=== PATIENT | male | born 1955 | race Caucasian/White ===

== ENCOUNTER → 2016-07-19 | Day surgery (SDC) | payer BC, OTHER ==
[2016-07-12 07:57] VITALS: Ht 182.9 cm; Wt 111.4 kg
[~2016-07-19] VITALS: Ht 182.9 cm; Wt 111.4 kg
[~2016-07-19] MED LIST: ALBU1AER9 INH; BNC/40 PO; CHOL1000 PO; EPP3/2 IM; MIDAZOLAM HCL 1 MG/ML 2ML VIAL ONE; MOME200A INH; MONT1TAB3 PO; OLME40TA33 PO; PANT40TA PO; PROPOFOL IV EMULSION 10 MG/ML 20 ML VIAL IV ONE; PRT/40 PO; RIVA1TAB4 PO; SIMV-151 PO; SNG10 PO; TPRSR/25 PO; VNTHFA/IN INH; XRL20 PO
[2016-07-19 14:12] VITALS: TEMP 36.9
--- NOTE | 2016-07-19 15:05 | Endo History and Physical ---
History & Physical Date of Service: Jul 19, 2016. Chief Complaint: Reflux Referring Physician: Miles Ye History of Present Illness 61 yo CM who presents for EGD secondary to GERD. Past Surgical History Hx Cardiac Surgery: Yes (CARDIAC ABLATION X3) Hx Internal Defibrillator: No Hx Pacemaker: No Hx Abdominal Surgery: Yes (APPY) Hx of Implantable Prosthesis: No Hx Post-Op Nausea and Vomiting: No Hx Cancer Surgery: Yes (MULTIPLE SKIN CANCER REMOVALS (MOHS)) Hx Thoracic Surgery: No Hx Orthopedic: Yes (RT HAND TENDON REPAIR) Hx Urinary Tract Surgery: No (TONSILLECTOMY) Family History None Social History Smoking Status: Former Smoker Hx Substance Use: No Hx Alcohol Use: No Allergies Coded Allergies: Lidocaine (Verified Allergy, Mild, LOCAL SWELLING AT SITE USED, 07/12/16) USED FOR LAST BRAIN SURGERY - DID OKAY WITH USE OF LIDOCAINE WITH MOHS PROCEDURES PER PATIENT, "JUST KEEP AN EYE ON ME WHEN USED." Current Medications Reported Home Medications Medications Dose Route/Sig Max Daily Dose Days Date Category Dose Instructions Singulair (Montelukast Sodium) 10 Mg Tab 10 Mg PO QAM 07/12/16 Reported Dulera 200/5 Mcg (Mometasone Furoate-Formoterol) 1 Aer Aer 2 Puffs INH BID 07/12/16 Reported Vitamin D3 (Cholecalciferol) 1,000 Unit Tab 1 Tab PO QAM 07/12/16 Reported Simvastatin 20 Mg Tab 20 Mg PO HS 09/22/14 Reported Metoprolol Succinate ER (Metoprolol Succinate) 25 Mg Tabcr 25 Mg PO QAM 09/22/14 Reported Xarelto (Rivaroxaban) 20 Mg Tab 20 Mg PO HS 02/04/13 Reported Epipen (Epinephrine) 0.3 Mg/0.3 Ml Inj 0.3 Mg IM UD PRN 02/04/13 Reported ONE INJECTION IF NEEDED FOR SEVERE ALLERGIC REACTIONS, REPEAT IN 20 MINUTES IF REACTION CONTINUES. Proair Hfa (Albuterol Sulfate) 108 Mcg/ Aer 2 Puffs INH Q4H PRN 02/04/13 Reported Benicar (Olmesartan Medoxomil) 40 Mg Tab 40 Mg PO HS 02/04/13 Reported Protonix (Pantoprazole Sodium) 40 Mg Tab 40 Mg PO BID 02/04/13 Reported Vital Signs Weight (Kilograms): 111.36 Height (Feet): 6 Height (Inches): 0 Date Time Temp Pulse Resp B/P Pulse Ox O2 Delivery O2 Flow Rate FiO2 07/19/16 14:12 36.9 76 16 141/86 95 Room Air Physical Exam General Appearance: WD/WN, no apparent distress Respiratory/Chest: Auscultation: breath sounds normal Cardiovascular: Heart Auscultation: RRR Abdomen: Bowel Sounds: normal Inspection & Palpation: soft, non-distended, no tenderness, guarding & rebound Assessment and Plan Assessment: 61 yo CM who presents for EGD secondary to GERD. Plan: Proceed with EGD.
--- NOTE | 2016-07-19 15:23 | Discharge Instructions ---
Endoscopy Patient Instructions Date / Procedure(s) Performed Jul 19, 2016. EGD Allergy Information Coded Allergies: Lidocaine (Verified Allergy, Mild, LOCAL SWELLING AT SITE USED, 07/12/16) USED FOR LAST BRAIN SURGERY - DID OKAY WITH USE OF LIDOCAINE WITH MOHS PROCEDURES PER PATIENT, "JUST KEEP AN EYE ON ME WHEN USED." Discharge Date / Findings Jul 19, 2016. Gastritis s/p biopsies Medication Instructions Stopped Medication(s): Xarelto OK to resume all medications today as prescribed. Reported Home Medications Medications Dose Route/Sig Max Daily Dose Days Date Category Dose Instructions Singulair (Montelukast Sodium) 10 Mg Tab 10 Mg PO QAM 07/12/16 Reported Dulera 200/5 Mcg (Mometasone Furoate-Formoterol) 1 Aer Aer 2 Puffs INH BID 07/12/16 Reported Vitamin D3 (Cholecalciferol) 1,000 Unit Tab 1 Tab PO QAM 07/12/16 Reported Simvastatin 20 Mg Tab 20 Mg PO HS 09/22/14 Reported Metoprolol Succinate ER (Metoprolol Succinate) 25 Mg Tabcr 25 Mg PO QAM 09/22/14 Reported Xarelto (Rivaroxaban) 20 Mg Tab 20 Mg PO HS 02/04/13 Reported Epipen (Epinephrine) 0.3 Mg/0.3 Ml Inj 0.3 Mg IM UD PRN 02/04/13 Reported ONE INJECTION IF NEEDED FOR SEVERE ALLERGIC REACTIONS, REPEAT IN 20 MINUTES IF REACTION CONTINUES. Proair Hfa (Albuterol Sulfate) 108 Mcg/ Aer 2 Puffs INH Q4H PRN 02/04/13 Reported Benicar (Olmesartan Medoxomil) 40 Mg Tab 40 Mg PO HS 02/04/13 Reported Protonix (Pantoprazole Sodium) 40 Mg Tab 40 Mg PO BID 02/04/13 Reported Provider Instructions Activity Restrictions - No exercising or heavy lifting for 24 hours. - Do not drink alcohol the day of the procedure. - Do not drive a car or operate machinery until the day after the procedure. - Do not make any important decisions or sign important papers in 24 hours after the procedure. Following Day: - Return to full activity which may include returning to work/school. Diet Start your diet with liquids and light foods (jello, soup, juice, toast). Then eat your usual diet if not nauseated. Treatment For Common After Affects For mild abdominal pain, bloating, or excessive gas: - Rest - Eat lightly - Lie on right side Follow-Up Information Follow-up with Miles Ye as scheduled Anesthesia Information What You Should Know You have had a procedure that required some medicine to reduce anxiety and discomfort. This treatment is called moderate sedation. After receiving the treatment, you may be sleepy, but you will be able to breathe on your own. The effects of the treatment may last for several hours. Follow these instructions along with Activity/Diet recommendations noted above: * Do NOT do anything where dizziness or clumsiness would be dangerous. * Rest quietly at home today, then you can be up and about tomorrow. * Have a responsible person stay with you the rest of today. * You may have had an I.V. today. If so, you may take the dressing off later today. Recommendations Call your doctor if: * Trouble breathing * Continuous vomiting for more than 24 hours * Temperature above 101 degrees * Severe abdominal pain or bloating * Pain not relieved by pain medicine ordered * There is increased drainage or redness from any incision * A large amount of rectal bleeding greater than 2-3 tablespoons. (If you had a polyp/s removed or have hemorrhoids, a small amount of blood - from the rectum is to be expected.) * You have any unanswered questions or concerns. IN THE EVENT OF A SERIOUS EMERGENCY, GO TO THE NEAREST EMERGENCY ROOM Your discharge instructions were prepared by provider Jose Luis Harper. Patient Instructions Signature Page Mariano Brown Patient (or Guardian) Signature/Date: I have read and understand the instructions given to me by my caregivers. Caregiver/RN/Doctor Signature/Date: The above-named patient and/or guardian has received patient instructions on this date. + Original Patient Signature Page (only) stays with chart. Please make copy for patient.
--- NOTE | 2016-07-19 15:32 | GI REPORT ---
Procedure Date: 07/19/2016 2:56 PM Procedure: Upper GI endoscopy Indications: Dysphagia Medicines: Monitored Anesthesia Care Complications: No immediate complications. Estimated Blood Loss: Estimated blood loss: none. Procedure: Pre-Anesthesia Assessment: - Prior to the procedure, a History and Physical was performed, and patient medications and allergies were reviewed. The patient's tolerance of previous anesthesia was also reviewed. The risks and benefits of the procedure and the sedation options and risks were discussed with the patient. All questions were answered, and informed consent was obtained. Prior Anticoagulants: The patient has taken Xarelto (rivaroxaban), last dose was 8 days prior to procedure. ASA Grade Assessment: III - A patient with severe systemic disease. After reviewing the risks and benefits, the patient was deemed in satisfactory condition to undergo the procedure. After obtaining informed consent, the endoscope was passed under direct vision. Throughout the procedure, the patient's blood pressure, pulse, and oxygen saturations were monitored continuously. The scope was introduced through the mouth, and advanced to the second part of duodenum. The upper GI endoscopy was accomplished without difficulty. The patient tolerated the procedure well. Findings: The esophagus was normal. Localized mild inflammation characterized by erythema was found in the gastric antrum. Biopsies were taken with a cold forceps for histology. The examined duodenum was normal. Impression: - Normal esophagus. - Gastritis. Biopsied. - Normal examined duodenum. Recommendation: - Resume previous diet. - Continue present medications. - Await pathology results. - Return to GI office as previously scheduled. Jose Luis Harper DO 07/19/2016 3:31:50 PM This report has been signed electronically. Note Initiated On: 07/19/2016 2:56 PM
[2016-07-19 15:40] VITALS: BP 123/72; PULSE 69; O2SAT 96
--- NOTE | 2016-07-19 15:56 | Anesthesiology Progress Note ---
Anesthesia Post Op Note Date & Time Jul 19, 2016 at 15:56 Vital Signs Pain Intensity: 0 Vital Signs Past 12 Hours Date Time Temp Pulse Resp B/P Pulse Ox O2 Delivery O2 Flow Rate FiO2 07/19/16 15:40 69 18 123/72 96 Room Air 07/19/16 15:30 73 18 126/72 95 Room Air 07/19/16 15:22 78 18 125/73 93 Room Air 07/19/16 14:12 36.9 76 16 141/86 95 Room Air Notes Mental Status: alert / awake / arousable, participated in evaluation Pt Amnestic to Procedure: Yes Nausea / Vomiting: adequately controlled Pain: adequately controlled Airway Patency, RR, SpO2: stable & adequate BP & HR: stable & adequate Hydration State: stable & adequate Anesthetic Complications: no major complications apparent
== END | disposition home or self-care (01) ==
LOC: C.GI 13:31
PROVIDERS: ATTEND Internal Medicine
DX: R13.10 Dysphagia, unspecified (principal); K29.70 Gastritis, unspecified, without bleeding; K21.9 Gastro-esophageal reflux disease without esophagitis; Z98.890 Other specified postprocedural states; Z87.891 Personal history of nicotine dependence; Z88.8 Allergy status to other drugs, medicaments and biological substances

== ENCOUNTER → 2016-08-09 | Outpatient (CLI) | payer OTHER ==
[~2016-08-09] MED LIST changes: -MIDAZOLAM HCL 1 MG/ML 2ML VIAL ONE; -PROPOFOL IV EMULSION 10 MG/ML 20 ML VIAL IV ONE
--- NOTE | 2016-08-09 08:44 | DIAGNOSTIC IMAGING REPORT ---
ABDOMINAL ULTRASOUND, RIGHT UPPER QUADRANT HISTORY: Right upper quadrant abdominal pain.. COMPARISON: Right upper quadrant ultrasound February 04, [address] of the abdomen and pelvis February 15, 2016 FINDINGS: Liver morphology is normal. No hepatic lesions are identified. No gallstones are identified. There is no biliary ductal dilatation. The pancreas is obscured by overlying bowel gas. There is no right hydronephrosis. IMPRESSION: 1. No gallstones or biliary ductal dilatation. 2. Obscured pancreas due to overlying bowel gas. Electronically signed by: Parth Leal M.D. 08/09/2016 8:43 AM Dictated Date/Time: 08/09/2016 8:41 AM
== END | disposition home or self-care (01) ==
LOC: C.ULTR 07:25
PROVIDERS: ATTEND Internal Medicine
DX: R10.11 Right upper quadrant pain (principal)

== ENCOUNTER → 2016-08-16 | Outpatient (CLI) | payer OTHER ==
[~2016-08-16] MED LIST changes: +SINCALIDE INJ 2.3 MCG in SODIUM CHLORIDE 0.9% 100ML 100 ML IV SCH
--- NOTE | 2016-08-16 10:26 | DIAGNOSTIC IMAGING REPORT ---
NUCLEAR MEDICINE HEPATOBILIARY SCAN WITH GALLBLADDER EJECTION FRACTION CLINICAL HISTORY: Right upper quadrant abdominal pain. COMPARISON: Right upper quadrant ultrasound August 09, 2016. TECHNIQUE: 5.8 mCi of technetium 99m Choletec IV was injected at 7:52 AM on August 16, 2016. Immediately following injection, imaging of the abdomen was carried out for 60 minutes in the anterior projection. At this time, 2.3 mcg of Sincalide was injected IV as per protocol. Imaging was performed for an additional 45 minutes to estimate a gallbladder ejection fraction. FINDINGS: Hepatic uptake of radiotracer is prompt and homogeneous. Activity is first identified within the gallbladder and common bile duct at 10 minutes. Small bowel activity is first noted at 15 minutes. Following injection of sincalide, there was normal gallbladder emptying with an ejection fraction of 99%. Normal is greater than 30-35%. IMPRESSION: 1. Normal hepatobiliary scan. 2. Normal gallbladder ejection fraction of 99%. Electronically signed by: Parth Leal M.D. 08/16/2016 10:25 AM Dictated Date/Time: 08/16/2016 10:24 AM
== END | disposition home or self-care (01) ==
LOC: C.NUCL 07:06
PROVIDERS: ATTEND Internal Medicine
DX: R10.11 Right upper quadrant pain (principal)

== ENCOUNTER 2016-12-18 12:14 | Emergency (ER) | payer OTHER ==
[~2016-12-18] VITALS: Ht 182.9 cm; Wt 115.0 kg
[~2016-12-18 12:14] MED LIST changes: -CHOL1000 PO; -EPP3/2 IM; -MOME200A INH; -OLME40TA33 PO; -PRT/40 PO; -SIMV-151 PO; -SINCALIDE INJ 2.3 MCG in SODIUM CHLORIDE 0.9% 100ML 100 ML IV SCH; -SNG10 PO; -TPRSR/25 PO; -VNTHFA/IN INH; -XRL20 PO
[2016-12-18 12:17] VITALS: TEMP 36.7; Ht 182.9 cm; Wt 115.0 kg
--- NOTE | 2016-12-18 13:30 | EMERGENCY ROOM VISIT NOTE ---
History Report prepared by Juventino: Shannon Montes Under the Supervision of: Dr. Abhishek Potter M.D. First contact with patient: 13:13 Chief Complaint: ALLERGIC REACTION Stated Complaint: BEE STING Nursing Triage Summary: Patient stung by bee to right lateral ankle. Did take epi pen RESISTANCE BRAZER, epi pen not left in leg after injection,w as immediately withdrawn, unknown amount of medication given. patient presents with some chest tightening. Negative oral pharynx swelling, negative chest pain, negative hives. Patient appears calm and comfortable. History of Present Illness The patient is a 61 year old male who presents to the Emergency Room with complaints of a resolved allergic reaction that started 2 hours ago, around 1130. The patient states that he was stung on the medial aspect of his left ankle by a "ground hornet." He states that he has been stung by them before and had allergic reactions. 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 The patient used his EpiPen around 1200. He is currently experiencing some chest tightness which he used his inhaler for. He denies oropharynx swelling, shortness of breath, pruritus, and rash. The patient did not take any Benadryl. The patient adds that he was also stung by a bee yesterday, but he did not have a severe reaction. Source of History: patient Onset: 2 hours ago, around 1130 Position: other (global) Quality: other (allergic reaction) Timing: resolved Associated Symptoms: No SOB, No rash Note: chest tightness, no oropharynx swelling, no pruritus Review of Systems All systems have been listed, reviewed, and are negative other than those previously mentioned. Please see Additional Medical History Sheet. Past Medical & Surgical Medical Problems: (1) Appendectomy (2) Asthma (3) Benign hypertension (4) Bronchitis (5) Heart disease (6) History of tonsillectomy (7) Paroxysmal atrial fibrillation (8) Pneumonia Surgical Problems: (1) S/P deep brain stimulator placement (2) S/P tendon repair Family History Hypertension Social History Smoking Status: Former Smoker Alcohol Use: none Drug Use: none Marital Status: Housing Status: lives with family Occupation Status: employed Current/Historical Medications Scheduled Cholecalciferol (Vitamin D3), 1 TAB PO QAM Metoprolol Succinate (Metoprolol Succinate ER), 25 MG PO QAM Mometasone Furoate-Formoterol (Dulera 200/5 Mcg), 2 PUFFS INH BID Montelukast Sodium (Singulair), 10 MG PO QAM Olmesartan Medoxomil (Benicar), 40 MG PO HS Pantoprazole Sodium (Protonix), 40 MG PO BID Rivaroxaban (Xarelto), 20 MG PO HS Simvastatin (Simvastatin), 20 MG PO HS Scheduled PRN Albuterol Hfa (Ventolin Hfa), 2 PUFFS INH Q4 PRN for SOB/Wheezing Epinephrine (Epipen), 0.3 MG IM UD PRN Allergies Coded Allergies: Lidocaine (Verified Allergy, Mild, LOCAL SWELLING AT SITE USED, 07/12/16) USED FOR LAST BRAIN SURGERY - DID OKAY WITH USE OF LIDOCAINE WITH MOHS PROCEDURES PER PATIENT, "JUST KEEP AN EYE ON ME WHEN USED." Bee Venom (Verified Allergy, Unknown, ANAPHYLAXIS, 12/18/16) POLLEN (Verified Allergy, Unknown, UNK, 12/18/16) Physical Exam Vital Signs Date Time Temp Pulse Resp B/P (MAP) Pulse Ox O2 Delivery O2 Flow Rate FiO2 12/18/16 14:43 70 16 124/84 96 12/18/16 13:44 73 13 94 12/18/16 13:33 120/83 12/18/16 13:14 83 16 95 12/18/16 12:53 Room Air 12/18/16 12:44 77 8 93 12/18/16 12:40 95 Room Air 12/18/16 12:32 81 12/18/16 12:17 36.7 85 20 151/93 94 Room Air Physical Exam GENERAL: Patient awake, alert, oriented x 3. Patient follows commands. Patient does not appear toxic. Patient is adequately hydrated and well- nourished. SKIN: No erythema, pallor, cyanosis or rash HEENT: Normal head, pupils equal, reactive to light and accommodation. Oral cavity and posterior pharynx appear normal. No tongue or uvular swelling. Neck: Without adenopathy, no neck vein distention. LUNGS: Clear to auscultation. No wheezes, no rales, no rhonchi. HEART: No murmurs. No gallops. No rubs ABDOMEN: Soft. Nontender. EXTREMITIES: Quarter-sized erythematous area on the medial aspect of the left ankle. NEUROLOGIC: Cranial nerves II-XII within normal limits. No gross motor sensory function deficits. Medical Decision & Procedures ED Course 1314: Past medical records reviewed. The patient was evaluated in room C5. A complete history and physical examination was performed. 1435: Upon reevaluation, the patient is completely asymptomatic. I discussed today's findings with him. He verbalized agreement of the treatment plan. He was discharged home. Medical Decision Nurses notes reviewed. Medical history sheet reviewed. Differential diagnosis includes but is not limited to: bee sting, localized reaction, anaphylaxis. Medication Reconciliation: I attest that I have personally reviewed the patient' s current medication list. Blood pressure Screening: Patient was found to have normal blood pressure on screening and does not require follow up. The patient is here after a bee sting. He's had significant allergic reactions in the past to bee stings. The patient is an EpiPen prior to arrival. He has taken no Benadryl. Examination on arrival reveals no wheezing, urticaria or significant swelling. In light of that, the patient was observed without IV or oral medication intervention. The patient was observed for greater than 90 minutes and was asymptomatic prior to discharge. Impression Primary Impression: Bee sting Additional Impression: Allergic reaction Scribe Attestation The scribe's documentation has been prepared under my direction and personally reviewed by me in its entirety. I confirm that the note above accurately reflects all work, treatment, procedures, and medical decision making performed by me. Departure Information Dispostion Home / Self-Care Referrals Miles Ye M.D. (PCP) Forms HOME CARE DOCUMENTATION FORM, IMPORTANT VISIT INFORMATION Patient Instructions ED Bite Sting Insect Gen Allergic React, My [facility] Additional Instructions You may take 25-50 mg of Benadryl if you have itching, swelling or difficulty breathing. Problem Qualifiers
[2016-12-18 14:43] VITALS: BP 124/84; PULSE 70; O2SAT 96
[2016-12-30] MEDS ORDERED: TPRSR/25 PO (07:26)
[2016-12-30] MEDS ORDERED: SIMV-151 PO (07:26)
[2016-12-30] MEDS ORDERED: CHOL1000 PO (07:54)
[2016-12-30] MEDS ORDERED: MOME200A INH (07:54)
[2016-12-30] MEDS ORDERED: VNTHFA/IN INH (12:27)
[2016-12-30] MEDS ORDERED: EPP3/2 IM (17:07)
== END 2016-12-18 14:48 | disposition home or self-care (01) ==
LOC: C.EDB 12:15 → C.EDC 14:48
DX: T63.441A Toxic effect of venom of bees, accidental (unintentional), initial encounter (principal); J45.909 Unspecified asthma, uncomplicated; I10 Essential (primary) hypertension; I48.0 Paroxysmal atrial fibrillation; Z87.01 Personal history of pneumonia (recurrent); Z87.09 Personal history of other diseases of the respiratory system; Z91.030 Bee allergy status; Z90.89 Acquired absence of other organs; Z98.890 Other specified postprocedural states; Z79.01 Long term (current) use of anticoagulants; Z79.899 Other long term (current) drug therapy

== ENCOUNTER 2016-12-30 19:50 | Emergency (ER) | payer OTHER ==
[~2016-12-30] VITALS: Ht 182.9 cm; Wt 111.2 kg
[~2016-12-30 19:50] MED LIST changes: -ALBU1AER9 INH; +CHOL1000 PO; +EPP3/2 IM; +MOME200A INH; +SIMV-151 PO; +TPRSR/25 PO; +VNTHFA/IN INH
[2016-12-30 19:54] VITALS: TEMP 36.6; Ht 182.9 cm; Wt 111.2 kg
[2016-12-30] MEDS ORDERED: SODIUM CHLORIDE 0.9% 1000ML 1,000 ML IV STA (20:06)
[2016-12-30] MEDS ORDERED: METHYLPREDNISOLONE 125 MG VIAL IV STA (20:06)
[2016-12-30] MEDS ORDERED: FAMOTIDINE IV INJ 40 MG in DEXTROSE 5% 100ML 100 ML IV SCH (20:15)
[2016-12-30] MEDS ORDERED: FAMOTIDINE IV INJ 40 MG in DEXTROSE 5% 100ML 100 ML IV ONE (20:30)
[2016-12-30] MEDS ORDERED: SNG10 PO (20:33)
[2016-12-30] MEDS ORDERED: OLME40TA33 PO (20:33)
[2016-12-30] MEDS ORDERED: PRT/40 PO (20:33)
[2016-12-30] MEDS ORDERED: XRL20 PO (20:33)
[2016-12-30 21:33] VITALS: BP 141/90; PULSE 80; O2SAT 96
--- NOTE | 2016-12-30 21:44 | EMERGENCY ROOM VISIT NOTE ---
History Report prepared by Juventino: Deanna Segura Under the Supervision of: Hao GarzonO. First contact with patient: 19:58 Chief Complaint: ALLERGIC REACTION Stated Complaint: ALLERGIC REACTION TO BEE STING Nursing Triage Summary: pt was stung in the right tempel by andiet at 1845 pt used epi pen and 75 mg of benedryl immediatley after being stung pt is having tremors currently pain around are of sting, tongue is thick and has a cough History of Present Illness The patient is a 61 year old male who presents to the Emergency Room with complaints of multiple bee stings occurring about an hour ago. The patient went out to get his lawn chair when he got stung on the right church and left ankle. He started having some difficulty swallowing but denies any tongue swelling or shortness of breath. He took an EpiPen around 6:55 pm. He also took 3 tables of 25 mg Benadryl. He has a known allergy to bees. He was evaluated in the Emergency Room on November 18 for a bee sting. He has been receiving allergy shots. Pt denies headache, change in vision, fevers, chest pain, nausea or vomiting. He is able to tolerate his secretions. Source of History: patient Onset: about an hour ago Position: head, ankle (left) Quality: other (bee stings) Modifying Factors (Relieving): other (EpiPen; 3 tables of 25 mg Benadryl) Associated Symptoms: No fevers, No headache, No chest pain, No SOB, No nausea, No vomiting, No diarrhea Review of Systems See HPI for pertinent positives & negatives. A total of 10 systems reviewed and were otherwise negative. Past Medical & Surgical Medical Problems: (1) Appendectomy (2) Asthma (3) Benign hypertension (4) Bronchitis (5) Heart disease (6) History of tonsillectomy (7) Paroxysmal atrial fibrillation (8) Pneumonia Surgical Problems: (1) S/P deep brain stimulator placement (2) S/P tendon repair Family History Hypertension Social History Smoking Status: Never Smoker Alcohol Use: none Drug Use: none Marital Status: Housing Status: lives with family Occupation Status: employed Current/Historical Medications Scheduled Cholecalciferol (Vitamin D3), 1,000 INTER.UNIT PO QAM Metoprolol Succinate (Metoprolol Succinate ER), 25 MG PO QAM Mometasone Furoate-Formoterol (Dulera 200/5 Mcg), 2 PUFFS INH BID Montelukast Sod (Montelukast Sodium), 10 MG PO QAM Olmesartan Medoxomil (Olmesartan Medoxomil), 40 MG PO HS Pantoprazole (Pantoprazole Sodium), 40 MG PO BID Rivaroxaban (Xarelto), 20 MG PO HS Simvastatin (Simvastatin), 20 MG PO HS Scheduled PRN Albuterol Hfa (Ventolin Hfa), 2 PUFFS INH Q4H PRN for SOB/Wheezing Epinephrine (Epipen), 0.3 MG IM UD PRN for ALLERGIC REACTION Allergies Coded Allergies: Lidocaine (Verified Allergy, Mild, LOCAL SWELLING AT SITE USED, 07/12/16) USED FOR LAST BRAIN SURGERY - DID OKAY WITH USE OF LIDOCAINE WITH MOHS PROCEDURES PER PATIENT, "JUST KEEP AN EYE ON ME WHEN USED." Bee Venom (Verified Allergy, Unknown, ANAPHYLAXIS, 12/18/16) POLLEN (Verified Allergy, Unknown, UNK, 12/18/16) Physical Exam Vital Signs Date Time Temp Pulse Resp B/P (MAP) Pulse Ox O2 Delivery O2 Flow Rate FiO2 12/30/16 21:33 80 18 141/90 96 12/30/16 20:45 85 18 138/90 99 Room Air 12/30/16 20:28 92 12/30/16 19:54 36.6 99 18 149/102 93 Room Air Physical Exam GENERAL: Sitting up in bed, no acute distress, non-toxic HEAD: Face with a small amount of erythema EYE EXAM: Injected conjunctiva OROPHARYNX: no exudate, no erythema, lips, buccal mucosa, and tongue normal and mucous membranes are moist NECK: supple, no nuchal rigidity, no adenopathy, non-tender. No stridor. LUNGS: Clear to auscultation. Normal chest wall mechanics HEART: Tachycardic rate. no murmurs, S1 normal and S2 normal ABDOMEN: abdomen soft, non-tender, normo-active bowel sounds, no masses, no rebound or guarding. BACK: Back is symmetrical on inspection and there is no deformity, no midline tenderness, no CVA tenderness. SKIN: no rashes and no bruising UPPER EXTREMITIES: upper extremities are grossly normal. LOWER EXTREMITIES: No pitting edema. Small, one area of erythema on the anterior aspect of the left ankle. NEURO EXAM: Normal sensorium, cranial nerves II-XII grossly intact, normal speech, no gross weakness of arms, no gross weakness of legs. Medical Decision & Procedures Medications Administered Medications (Trade) Dose Ordered Sig/Patrick Route Start Time Stop Time Status Last Admin Dose Admin Sodium Chloride 1,000 ml @ 999 mls/hr Q1H1M STAT IV 12/30/16 20:06 12/30/16 21:06 DC 12/30/16 20:40 999 MLS/HR Methylprednisolone Sodium Succinate (Solu-Medrol IV) 125 mg NOW STAT IV 12/30/16 20:06 12/30/16 20:08 DC 12/30/16 20:39 125 MG Famotidine 40 mg/ Dextrose 104 ml @ 200 mls/hr NOW ONCE IV 12/30/16 20:30 12/30/16 21:01 DC 12/30/16 20:39 200 MLS/HR ECG Indication: other (Allergic reaction) Rate (beats per minute): 102 Rhythm: sinus rhythm Findings: Q waves (Inferior) Comparison ECG Date: February 04, 2013 Change: no significant change ED Course ED COURSE: Vital signs were reviewed and showed hypertensive The patients medical record was reviewed The above diagnostic studies were performed and reviewed. ED treatments and interventions as stated above. 1957: The patient was evaluated in room B06. A complete history and physical examination was performed. 2006: Solu-Medrol IV 125 mg IV, Sodium Chloride 1000 ml @ 999 mls/hr IV 2029: Famotidine 40 mg/Dextrose 104 ml @ 200 mls/hr IV 2053: I reevaluated the patient. His difficulty with swallowing has significantly improved. 2124: Upon reevaluation, the patient is feeling better. His symptoms have completely resolved. I discussed my findings with the patient and he understands and agrees with the treatment plan. Based on the patients age, coexisting illnesses, exam and lab findings the decision to treat as an outpatient was made. The patient remained stable while under my care. The patient appeared well at the time of discharge. Medical Decision Medication Reconciliation: I attest that I have personally reviewed the patient' s current medication list. Blood Pressure Screening: The patient was found to have a slightly elevated blood pressure due to circumstances. I do not believe that the patient requires hypertension monitoring. Differential diagnosis: Etiologies such as allergic reaction, anaphylaxis, urticaria, Lopez-Reece syndrome, toxic epidermal necrolysis, erythema multiforme, cellulitis, as well as others were entertained. Patient is a 61-year-old male that was stung by a bee at 6:45 PM tonight 2. 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 He gave himself an EpiPen at 6:55 PM. His symptoms have improved but he notes his tongue feels a little on the bigger side. He took 75 mg of Benadryl. He has no other complaints at this time. Exam is benign. No stridor. No wheezing. Oral pharynx is clear. Tongue appears normal. Patient was given famotidine and steroids. He was watched until 9:40 PM following which she had complete resolution of his symptoms. EKG was unchanged. He is greater than 2 hours out from epinephrine. He is back to baseline and was discharged follow-up with his PCP. Discussed with Pt concerning signs and symptoms to watch out for. Pt was instructed to follow up with their PCP and discussed with the patient their option to return to the ED at anytime for persistent or worsening symptoms. The appropriate anticipatory guidance and out-patient management, including indications for return to the emergency department, were explained at length to the patient and understood. Impression Primary Impression: Allergic reaction Scribe Attestation The scribe's documentation has been prepared under my direction and personally reviewed by me in its entirety. I confirm that the note above accurately reflects all work, treatment, procedures, and medical decision making performed by me. Departure Information Dispostion Home / Self-Care Referrals Miles Ye M.D. (PCP) Forms HOME CARE DOCUMENTATION FORM, IMPORTANT VISIT INFORMATION Patient Instructions ED Allergic Reaction General Other, First Aid Allergic React, [facility] Additional Instructions Please follow up with your primary care doctor with in the next 24 hours. Any worsening of your symptoms, please return to the ED immediately. This includes trouble swallowing, trouble breathing, diffuse hives, or any other concerning signs or symptoms from your standpoint. Problem Qualifiers Primary Impression: Allergic reaction Encounter type: initial encounter Qualified Codes: T78.40XA - Allergy, unspecified, initial encounter
== END 2016-12-30 21:35 | disposition home or self-care (01) ==
LOC: C.EDB 19:50
DX: T63.441A Toxic effect of venom of bees, accidental (unintentional), initial encounter (principal); I10 Essential (primary) hypertension; I48.91 Unspecified atrial fibrillation; I51.9 Heart disease, unspecified; J45.909 Unspecified asthma, uncomplicated; Z98.890 Other specified postprocedural states; Z91.030 Bee allergy status; Z91.09 Other allergy status, other than to drugs and biological substances; Z82.49 Family history of ischemic heart disease and other diseases of the circulatory system

== ENCOUNTER → 2017-01-29 | Outpatient (CLI) | payer OTHER ==
[~2017-01-29] MED LIST changes: -BNC/40 PO; -MONT1TAB3 PO; +OLME40TA33 PO; -PANT40TA PO; +PRT/40 PO; -RIVA1TAB4 PO; +SNG10 PO; +XRL20 PO
[2017-01-29 09:40] LABS: URINE APPEARANCE CLEAR (CLEAR); URINE COLOR DK YELLOW; URINE NITRITE NEG (NEG); URINE PH 5.5 (4.5-7.5); URINE SPECIFIC GRAVITY 1.026 (1.000-1.030); UROBILINOGEN NEG (NEG)
[2017-01-29 10:10] LABS: MANUAL MICROSCOPIC REQUIRED? NO; REVIEW REQ? NO; URINE BILIRUBIN 1+ (NEG)
== END | disposition home or self-care (01) ==
LOC: C.LAB1850 08:08
PROVIDERS: ATTEND Internal Medicine
DX: R82.90 Unspecified abnormal findings in urine (principal)

== ENCOUNTER → 2017-03-05 | Outpatient (CLI) | payer OTHER ==
[2017-03-08 20:38] LABS: METHYLMALONIC ACID 88 NMOL/L (87-318)
== END | disposition home or self-care (01) ==
LOC: C.LAB1850 12:55
PROVIDERS: ATTEND Physician Assistant
DX: D51.0 Vitamin B12 deficiency anemia due to intrinsic factor deficiency (principal)

== ENCOUNTER → 2017-03-12 | Outpatient (CLI) | payer OTHER ==
[2017-03-12 10:23] LABS: URINE APPEARANCE TURBID (CLEAR); URINE COLOR DK YELLOW; URINE NITRITE NEG (NEG); UROBILINOGEN NEG (NEG); ZZUR CULT IF INDIC CLEAN CATCH NO
[2017-03-12 10:39] LABS: MANUAL MICROSCOPIC REQUIRED? NO; REVIEW REQ? NO; URINE BILIRUBIN NEG (NEG)
== END | disposition home or self-care (01) ==
LOC: C.LAB1850 07:13
PROVIDERS: ATTEND Internal Medicine
DX: R31.0 Gross hematuria (principal)

== ENCOUNTER → 2017-03-19 | Outpatient (CLI) | payer OTHER ==
[2017-03-19 09:33] LABS: BASO % 0.7 %; BASO ABS # 0.04 K/uL (0-0.2); COMPLETE YES; IG% 0.2 %; LYMPH % 36.8 %; LYMPH ABS # 1.97 K/uL (1.2-3.4); MEAN CELL VOLUME 88.2 fL (80-100); MEAN CORPUSCULAR HEMOGLOBIN 29.3 pg (25-34); MEAN CORPUSCULAR HGB CONC 33.2 g/dl (32-36); MEAN PLATELET VOLUME 10.5 fL (7.4-10.4); MONO % 6.4 %; NEUT % 52.9 %; PLATELET COUNT 182 K/uL (130-400); RED BLOOD COUNT 4.99 M/uL (4.7-6.1); WHITE BLOOD COUNT 5.35 K/uL (4.8-10.8)
== END | disposition home or self-care (01) ==
LOC: C.LAB1850 08:56
PROVIDERS: ATTEND Physician Assistant
DX: E53.8 Deficiency of other specified B group vitamins (principal)

== ENCOUNTER → 2017-05-24 | Outpatient (CLI) | payer OTHER ==
[~2017-05-24] MED LIST changes: +PANT40TA2 PO; -PRT/40 PO
--- NOTE | 2017-05-24 09:51 | DIAGNOSTIC IMAGING REPORT ---
R HAND MIN 3 VIEWS ROUTINE CLINICAL HISTORY: M79.643 Hand [id number] pain COMPARISON: None. DISCUSSION: Minimal degenerative change of the interphalangeal as well as metacarpophalangeal joints throughout. Minimal degenerative change first carpometacarpal joint. No acute bony abnormality. There is no evidence for soft tissue swelling. IMPRESSION: Minimal degenerative change throughout the right hand. No acute process. The above report was generated using voice recognition software. It may contain grammatical, syntax or spelling errors. Electronically signed by: Mariano Pruitt M.D. 05/24/2017 9:50 AM Dictated Date/Time: 05/24/2017 9:49 AM
--- NOTE | 2017-05-24 09:52 | DIAGNOSTIC IMAGING REPORT ---
L HAND MIN 3 VIEWS ROUTINE CLINICAL HISTORY: M79.643 Hand [id number] pain COMPARISON: None. DISCUSSION: Minimal degenerative change of the interphalangeal joints throughout the entire hand. Is considered moderate at the distal interphalangeal joint of the fifth finger as well as first carpometacarpal joint. No evidence for fracture or dislocation. No significant periarticular osteopenia. There is no evidence for soft tissue swelling. IMPRESSION: Mild to moderate degenerative change. The above report was generated using voice recognition software. It may contain grammatical, syntax or spelling errors. Electronically signed by: Mariano Pruitt M.D. 05/24/2017 9:51 AM Dictated Date/Time: 05/24/2017 9:50 AM
== END | disposition home or self-care (01) ==
LOC: C.RAD1850 09:31
PROVIDERS: ATTEND Internal Medicine
DX: R97.20 Elevated prostate specific antigen [PSA] (principal); M79.643 Pain in unspecified hand; M19.042 Primary osteoarthritis, left hand

== ENCOUNTER 2022-06-15 17:10 | Inpatient (IN) ==
[2022-06-15] MEDS ORDERED: dilTIAZem HCl 5 MG/ML 5 ML VIAL IV ONE (17:28)
[2022-06-15] MEDS ORDERED: SODIUM CHLORIDE 0.9% 1000ML 1,000 ML IV STA (17:30)
[2022-06-15] MEDS ORDERED: ASPIRIN CHEW 324 MG PO STA (17:30)
[2022-06-15] MEDS ORDERED: STAT IV Infusion **Titration per Protocol STA (17:33)
[2022-06-15] MEDS: dilTIAZem HCL 125 MG in DEXTROSE 5% 100 ML IV SCH (17:45)
[2022-06-15 18:03] LABS: Basophils # (auto) 0.09 K/uL (0-0.2); Basophils % (auto) 0.7 %; Eosinophils # (auto) 0.19 K/uL (0-0.50); Eosinophils % (auto) 1.4 %; Hematocrit (blood only) 46.8 % (40.1-51.0); Hemoglobin 16.3 g/dl (14.0-18.0); Immature Granulocytes # (auto) 0.04 K/uL (0.00-0.02); Immature Granulocytes % (auto) 0.3 %; Lymphocytes # (auto) 3.33 K/uL (1.2-3.4); Lymphocytes % (auto) 24.5 %; Mean Corpuscular Hemoglobin 30.1 pg (25.0-34.0); Mean Corpuscular Hgb Conc 34.8 g/dL (32.0-36.0); Mean Corpuscular Volume 86.3 fL (80.0-100.0); Monocytes # (auto) 0.63 K/uL (0.24-0.82); Monocytes % (auto) 4.6 %; Neutrophils # (auto) 9.33 K/uL (1.4-6.5); Neutrophils % (auto) 68.5 %; Platelet Count 183 K/uL (130-400); RDW Coefficient of Variation 13.3 % (11.5-14.5); RDW Standard Deviation 41.3 fL (36.4-46.3); Red Blood Count 5.42 M/uL (4.63-6.08); White Blood Count 13.61 K/ul (4.8-10.8)
[2022-06-15 18:17] LABS: Partial Thromboplastin Time 28.8 Seconds (21.0-31.0); Prothrombin Time 10.9 Seconds (9.0-12.0)
[2022-06-15 18:25] LABS: BUN Creatinine Ratio 23.8 (10-20); Calcium 9.3 mg/dl (8.5-10.1); Creatinine Clr Calc Pharmacy 126.5 ml/min; Est GFR (African American) 108.7 ml/min; Est GFR (Non-African American) 93.7 ml/min; Magnesium 1.7 mg/dl (1.7-2.4); Potassium 3.6 mmol/L (3.5-5.1)
[2022-06-15 18:31] LABS: Troponin I High Sensitivity 11.6 pg/ml (0-20)
--- NOTE | 2022-06-15 18:44 | XRay Report ---
XR chest 1V portable HISTORY: Atypical Chest pain, nonspecific COMPARISON: Chest 05/09/2022. FINDINGS: The lungs are clear. Cardiac silhouette is normal in size. No pleural effusions. No pneumot horax. IMPRESSION: No acute process. ACT 112: Negative or not required by law. Electronically signed by: Feliz Hunter M.D. 06/15/2022 6:42 PM
--- NOTE | 2022-06-15 19:24 | History & Physical Report ---
Date of Service June 15, 2022 Assessment & Plan (1) Atrial fibrillation with RVR: Plan Chest discomfort A. fib RVR Patient presented with chest discomfort, noted increased heart rate up to 149 in his fitbit watch. Patient reports relief in chest discomfort with initiation of Cardizem drip. At presentation patient with A. fib RVR, status post Cardizem bolus and drip per ER doctor. During my exam, patient had irregular heart rate, heart rate in 80s to 90s. Patient was on Cardizem drip. Patient reports improvement in his chest discomfort. Admitting troponin WNL, trend troponin, replace magnesium potassium with a goal of 2.0 and 4.0 respectively. ECHO. Cardiology consult. Continue w cardizem drip started in ED. Hypertensive urgency: Admitting blood pressure 153/85, blood pressure went up to 213/124. Likely secondary to acute distress. Will institute as needed blood pressure medications. Continue telemetry monitoring. EKG as needed for chest pain. Leukocytosis: Secondary to acute stress, will order Pro-Won. Follow-up labs in AM. Other chronic medical conditions: Asthma, allergic rhinitis, Balbuena's esophagus, constipation, essential tremor ----resume home meds as able DVT prophylaxis: Patient on Xarelto Full code History of Present Illness Chief Complaint: Chest discomfort, increased heart rate noted in "fit bit" watch Primary Care Provider: Gabrielle Beltran DO 67-year-old male with PMH of moderate persistent asthma, allergic rhinitis, Balbuena's esophagus, constipation, essential tremor, actinic keratosis, status post deep brain stimulator placement presented to the ED 06/15 with complaint of sudden onset chest discomfort at around 3:30 PM on the day of arrival. Patient also noted increased heart rate in his Fitbit watch up to 149. He reports discomfort radiating into his left shoulder and arm, 4-5 over 10, continued thro ugh 3 hours until he presented to the ED, got relieved after being started on Cardizem drip per patient. Patient denies any fever or chills or headache or belly pain or acute changes in his bowel or bladder habit. Patient reports some dizziness during the day and shortness of breath associated with chest discomfort. At admission magnesium low normal, troponin WNL, chest x-ray with no acute find ing, potassium low normal. Will replete magnesium and potassium. Patient quit smoking 1992, quit drinking alcohol 1980, denies use of recreational drugs. Full code [patient's Kailee is medical POA per patient, was at bedside] Family history positive for heart disease in his father, patient not sure what kind. Lung cancer in grandfather. Patient is a retired business project analyst. Medications reviewed with the patient. Allergies Allergy/AdvReac Type Severity Reaction Status Date / Time bee venom protein (honey bee) Allergy Severe ANAPHYLAXIS Verified 06/15/22 20:03 lidocaine Allergy Mild LOCAL Verified 06/15/22 20:03 SWELLING AT SITE USED pollen extracts Allergy Mild sneezing, Verified 06/15/22 20:03 watery eyes Home Medications Medication Instructions Recorded Confirmed Type cholecalciferol (vitamin D3) 25 1,000 unit PO QAM 10/20/19 06/15/22 History mcg (1,000 unit) tablet (Vitamin D3) epinephrine 0.3 mg/0.3 mL 0.3 mg (0.3 mL) IM Q3H PRN 11/21/21 06/15/22 Rx injection, auto-injector (EpiPen) Allergic Reaction #1 ea albuterol sulfate 90 mcg/actuation 2 puff inhalation Q4H PRN 03/22/22 06/15/22 Rx aerosol inhaler (Ventolin HFA) Shortness Of Breath #3 Inhalers loratadine 10 mg tablet (Claritin) 10 mg PO QAM #90 tabs 03/22/22 06/15/22 Rx metoprolol succinate 25 mg 25 mg PO HS #90 tabs 03/22/22 06/15/22 Rx tablet,extended release 24 hr montelukast 10 mg tablet 10 mg PO HS #90 tabs 03/22/22 06/15/22 Rx rivaroxaban 20 mg tablet (Xarelto) 20 mg PO HS #90 tabs 03/22/22 06/15/22 Rx simvastatin 20 mg tablet 20 mg PO HS #90 tabs 03/22/22 06/15/22 Rx nystatin 100,000 unit/mL oral 5 ml PO BID PRN mouth soreness 5 05/17/22 06/15/22 Rx suspension days #60 mL fluticasone 250 mcg-salmeterol 50 1 inh inhalation AMHS 06/15/22 06/15/22 History mcg/dose blistr powdr for inhalation omeprazole 40 mg capsule,delayed 40 mg PO QAM 06/15/22 06/15/22 History release primidone 50 mg tablet 25 - 50 mg PO UD 06/15/22 06/15/22 History Past Med/Surg History Medical History A-fib Adjustment disorder with depressed mood Allergic rhinitis due to other allergen Asthma Cancer Essential tremor GERD (gastroesophageal reflux disease) History of Balbuena's esophagus Hyperlipidemia Hypertension Osteoarthritis Sleep apnea Solitary pulmonary nodule Symptomatic PVCs Syncope Tinnitus Surgical History History of cardiac radiofrequency ablation History of colonoscopy History of esophagogastroduodenoscopy (EGD) History of surgery History of tonsillectomy and adenoidectomy History of tooth extraction Hx of appendectomy Hx of vasectomy S/P deep brain stimulator placement S/P PICC central line placement S/P tendon repair Family History Father Hypertension Grandfather (Paternal) Diabetes Myocardial infarction Other Asthma No family history of adverse response to anesthesia Denies family history of Ovarian cancer Prostate cancer Breast cancer Colorectal cancer Social History Smoking Status: Former smoker Second Hand Exposure: No; Hx Alcohol Use: Yes Hx Substance Use: No Preferred Language: Irish Communication Ability: Effective Visual Impairment: No Limitations Hearing Ability: Normal Turnaround Planner Required: No Beliefs That Will Affect Care: None marital status: Current Living Situation: Spouse other: previous service- [employer] Feels Safe at Home: Yes caffeine: Yes Dental Care, Regularly: Yes Seatbelt Use: always Sunscreen Use: No Assistive Devices: CPAP and Glasses Review of Systems Review of Systems: Negative otherwise mentioned in HPI. Physical Exam Physical Exam: GENERAL: Alert and oriented x3. NAD, on RA. HEENT: No pallor, no icterus. Pupils equal, round and reactive to light. Oral mucosa moist. NECK: No JVD, no neck masses. HEART: S1 and S2 heard. irregular rate and rhythm. No murmur, no gallop. RESPIRATORY SYSTEM: Normal AP diameter. No accessory muscle use. No wheezing, no crackles. ABDOMEN: Soft, bowel sounds present, nontender, no distention. CENTRAL NERVOUS SYSTEM: No facial droop. Speech is clear. Obeys simple commands. Moves extremities. EXTREMITIES: trace ble edema, no erythema seen. Results & Data Results & Data ([facility]) Vital Signs (Past 12 Hours) Vital Signs Pulse Resp BP Pulse Ox O2 Del Method 06/15/22 17:38 Room Air 06/15/22 17:37 Room Air 06/15/22 17:17 145 H 20 160/101 H 94 Room Air
[2022-06-15] MEDS ORDERED: ACETAMINOPHEN 325 MG TAB PO PRN (20:13)
[2022-06-15] MEDS ORDERED: ALUMINUM/MAGNESIUM SUSP 30 ML UDC PO PRN (20:13)
[2022-06-15] MEDS ORDERED: ONDANSETRON INJ 2 MG/ML 2 ML VIAL IV PRN (20:13)
[2022-06-15] MEDS ORDERED: NITROGLYCERIN SL 0.4 MG/TAB TAB SL PRN (20:13)
[2022-06-15] MEDS ORDERED: POLYETHYLENE (MIRALAX) 17 GM PACK PO PRN (20:13)
[2022-06-15] MEDS ORDERED: LABETALOL HCL IV 5 MG/ML 20ML IV PRN (20:38)
[2022-06-15] MEDS ORDERED: hydrALAZINE HCL 20 MG/ML VIAL IV PRN (20:38)
[2022-06-15] MEDS ORDERED: POTASSIUM CHLORIDE CRTAB 20 MEQ TABCR PO STA (20:41)
--- NOTE | 2022-06-15 21:46 | Emergency Department Note ---
History of Present Illness General Chief Complaint: Chest Pain Stated Complaint: HEART PROBLEMS,CHEST PAIN, Time Seen by Provider: 06/15/22 17:23 History of Present Illness Provider Complaint: chest pain Time: 15:30 Duration: constant Onset: during rest Pain Location: substernal Pain Radiation: LUE Severity: moderate Quality: + aching and + dull Relieved By: + nothing Exacerbated By: + nothing Context: no recent illness, no recent surgery, no recent immobilization, no recent travel, no trauma/injury, no history of DVT/PE or no other Associated symptoms: + palpitations (history of afib. follows with Dr. Hammonds has had ablations in past on no rate controlling medications but on xarelto); no diaphoresis, no dyspnea, no syncope, no fever or no cough Home Medications Medication Instructions Recorded Confirmed Type cholecalciferol (vitamin D3) 25 1,000 unit PO QAM 10/20/19 06/15/22 History mcg (1,000 unit) tablet (Vitamin D3) epinephrine 0.3 mg/0.3 mL 0.3 mg (0.3 mL) IM Q3H PRN 11/21/21 06/15/22 Rx injection, auto-injector (EpiPen) Allergic Reaction #1 ea albuterol sulfate 90 mcg/actuation 2 puff inhalation Q4H PRN 03/22/22 06/15/22 Rx aerosol inhaler (Ventolin HFA) Shortness Of Breath #3 Inhalers loratadine 10 mg tablet (Claritin) 10 mg PO QAM #90 tabs 03/22/22 06/15/22 Rx metoprolol succinate 25 mg 25 mg PO HS #90 tabs 03/22/22 06/15/22 Rx tablet,extended release 24 hr montelukast 10 mg tablet 10 mg PO HS #90 tabs 03/22/22 06/15/22 Rx rivaroxaban 20 mg tablet (Xarelto) 20 mg PO HS #90 tabs 03/22/22 06/15/22 Rx simvastatin 20 mg tablet 20 mg PO HS #90 tabs 03/22/22 06/15/22 Rx nystatin 100,000 unit/mL oral 5 ml PO BID PRN mouth soreness 5 05/17/22 06/15/22 Rx suspension days #60 mL fluticasone 250 mcg-salmeterol 50 1 inh inhalation [facility] 06/15/22 06/15/22 History mcg/dose blistr powdr for inhalation omeprazole 40 mg capsule,delayed 40 mg PO QAM 06/15/22 06/15/22 History release primidone 50 mg tablet 25 - 50 mg PO UD 06/15/22 06/15/22 History Allergies Allergy/AdvReac Type Severity Reaction Status Date / Time bee venom protein (honey bee) Allergy Severe ANAPHYLAXIS Verified 06/15/22 20:03 lidocaine Allergy Mild LOCAL Verified 06/15/22 20:03 SWELLING AT SITE USED pollen extracts Allergy Mild sneezing, Verified 06/15/22 20:03 watery eyes Past Med/Surg History Medical History A-fib REASON FOR XARELTO Adjustment disorder with depressed mood Allergic rhinitis due to other allergen Asthma inhaler daily/prn, no exacerbations in the last 3 months Cancer SKIN CANCER REMOVED FROM FACE Essential tremor VS PARKINSON'S "CAN'T R/O" GERD (gastroesophageal reflux disease) History of Balbuena's esophagus "CLEARED UP" Hyperlipidemia Hypertension Osteoarthritis Sleep apnea cpap Solitary pulmonary nodule Symptomatic PVCs med controlled, "weak knees" Syncope none since 2020 Tinnitus Surgical History History of cardiac radiofrequency ablation X 3 (LAST ONE 2009 AT [facility]) History of colonoscopy History of esophagogastroduodenoscopy (EGD) History of surgery eye surgery to remove cancer History of tonsillectomy and adenoidectomy History of tooth extraction Hx of appendectomy Hx of vasectomy S/P deep brain stimulator placement IMPLANTED 2002, DEVICE REMOVED SEPTEMBER 2019>INFECTION RESULTING IN REMOVAL (CURRENTLY ON ANTIBIOTICS VIA PICC LINE) S/P PICC central line placement hx S/P tendon repair RT THUMB Family History Father Hypertension Grandfather (Paternal) Diabetes Myocardial infarction Other Asthma No family history of adverse response to anesthesia Denies family history of Ovarian cancer Prostate cancer Breast cancer Colorectal cancer Social History Smoking Status: Former smoker Second Hand Exposure: No; Hx Alcohol Use: Yes Hx Substance Use: No Preferred Language: Japanese Communication Ability: Effective Visual Impairment: No Limitations Hearing Ability: Normal Beam Department Supervisor Required: No Beliefs That Will Affect Care: None marital status: Current Living Situation: Spouse other: previous service- [employer] Feels Safe at Home: Yes caffeine: Yes Dental Care, Regularly: Yes Seatbelt Use: always Sunscreen Use: No Assistive Devices: CPAP and Glasses Review of Systems A total of 10 systems reviewed and were otherwise negative Physical Exam Vital Signs Vital Signs - 24 hr 06/15/22 17:17 06/15/22 17:37 06/15/22 17:38 Temperature Source Pulse Rate 145 H Pulse Rate from SpO2 Sensor Pulse Rhythm Irregular Respiratory Rate 20 Respiratory Effort / Characteristics Non-Labored Spontaneous Respiratory Depth Normal Respiratory Pattern Regular Blood Pressure 160/101 H Blood Pressure Mean 120 Blood Pressure Position Sitting Pulse Oximetry 94 Oxygen Delivery Method Room Air Room Air Room Air Sepsis Recent Fever Within 48 Hours No Sepsis New/Unexplained Change in Mental Status No Sepsis Action Taken by Nursing No Action Required 06/15/22 17:38 06/15/22 17:34 06/15/22 17:40 Temperature Source Oral Pulse Rate 175 H 128 H Pulse Rate from SpO2 Sensor 164 H Pulse Rhythm Respiratory Rate 16 14 Respiratory Effort / Characteristics Respiratory Depth Respiratory Pattern Blood Pressure Blood Pressure Mean Blood Pressure Position Pulse Oximetry 93 Oxygen Delivery Method Sepsis Recent Fever Within 48 Hours Sepsis New/Unexplained Change in Mental Status Sepsis Action Taken by Nursing 06/15/22 17:41 06/15/22 17:41 06/15/22 17:45 Temperature Source Pulse Rate 124 H 101 H Pulse Rate from SpO2 Sensor 96 H Pulse Rhythm Respiratory Rate 16 Respiratory Effort / Characteristics Respiratory Depth Respiratory Pattern Blood Pressure 131/89 Blood Pressure Mean 103 Blood Pressure Position Pulse Oximetry 94 Oxygen Delivery Method Sepsis Recent Fever Within 48 Hours Sepsis New/Unexplained Change in Mental Status Sepsis Action Taken by Nursing 06/15/22 17:45 06/15/22 17:50 06/15/22 18:00 Temperature Source Pulse Rate 124 H Pulse Rate from SpO2 Sensor 98 H Pulse Rhythm Respiratory Rate Respiratory Effort / Characteristics Respiratory Depth Respiratory Pattern Blood Pressure 138/87 153/85 H Blood Pressure Mean 104 107 Blood Pressure Position Pulse Oximetry 94 Oxygen Delivery Method Sepsis Recent Fever Within 48 Hours Sepsis New/Unexplained Change in Mental Status Sepsis Action Taken by Nursing 06/15/22 18:00 06/15/22 18:10 06/15/22 18:36 Temperature Source Pulse Rate 106 H 117 H 138 H Pulse Rate from SpO2 Sensor 111 H 113 H 139 H Pulse Rhythm Respiratory Rate 16 19 14 Respiratory Effort / Characteristics Respiratory Depth Respiratory Pattern Blood Pressure Blood Pressure Mean Blood Pressure Position Pulse Oximetry 94 94 93 Oxygen Delivery Method Sepsis Recent Fever Within 48 Hours Sepsis New/Unexplained Change in Mental Status Sepsis Action Taken by Nursing 06/15/22 18:40 06/15/22 18:50 06/15/22 19:00 Temperature Source Pulse Rate 129 H 141 H Pulse Rate from SpO2 Sensor 128 H 128 H 134 H Pulse Rhythm Respiratory Rate 18 Respiratory Effort / Characteristics Respiratory Depth Respiratory Pattern Blood Pressure Blood Pressure Mean Blood Pressure Position Pulse Oximetry 93 93 95 Oxygen Delivery Method Sepsis Recent Fever Within 48 Hours Sepsis New/Unexplained Change in Mental Status Sepsis Action Taken by Nursing 06/15/22 19:01 06/15/22 19:01 06/15/22 19:10 Temperature Source Pulse Rate 130 H 134 H Pulse Rate from SpO2 Sensor 127 H 130 H Pulse Rhythm Respiratory Rate 14 14 Respiratory Effort / Characteristics Respiratory Depth Respiratory Pattern Blood Pressure 181/134 H Blood Pressure Mean 149 Blood Pressure Position Pulse Oximetry 91 95 Oxygen Delivery Method Sepsis Recent Fever Within 48 Hours Sepsis New/Unexplained Change in Mental Status Sepsis Action Taken by Nursing 06/15/22 19:20 06/15/22 19:30 06/15/22 19:30 Temperature Source Pulse Rate 122 H Pulse Rate from SpO2 Sensor 118 H 79 Pulse Rhythm Respiratory Rate 14 Respiratory Effort / Characteristics Respiratory Depth Respiratory Pattern Blood Pressure 191/95 H Blood Pressure Mean 127 Blood Pressure Position Pulse Oximetry 94 94 Oxygen Delivery Method Sepsis Recent Fever Within 48 Hours Sepsis New/Unexplained Change in Mental Status Sepsis Action Taken by Nursing 06/15/22 19:40 06/15/22 19:50 06/15/22 20:00 Temperature Source Pulse Rate 85 83 Pulse Rate from SpO2 Sensor 78 80 83 Pulse Rhythm Respiratory Rate 12 19 Respiratory Effort / Characteristics Respiratory Depth Respiratory Pattern Blood Pressure Blood Pressure Mean Blood Pressure Position Pulse Oximetry 95 94 95 Oxygen Delivery Method Sepsis Recent Fever Within 48 Hours Sepsis New/Unexplained Change in Mental Status Sepsis Action Taken by Nursing 06/15/22 20:01 06/15/22 20:01 06/15/22 20:10 Temperature Source Pulse Rate 87 84 Pulse Rate from SpO2 Sensor 83 80 Pulse Rhythm Respiratory Rate 18 16 Respiratory Effort / Characteristics Respiratory Depth Respiratory Pattern Blood Pressure 213/124 H Blood Pressure Mean 153 Blood Pressure Position Pulse Oximetry 92 94 Oxygen Delivery Method Sepsis Recent Fever Within 48 Hours Sepsis New/Unexplained Change in Mental Status Sepsis Action Taken by Nursing 06/15/22 20:20 06/15/22 20:30 06/15/22 20:40 Temperature Source Pulse Rate 82 84 82 Pulse Rate from SpO2 Sensor 70 77 78 Pulse Rhythm Respiratory Rate 19 16 15 Respiratory Effort / Characteristics Respiratory Depth Respiratory Pattern Blood Pressure Blood Pressure Mean Blood Pressure Position Pulse Oximetry 93 93 93 Oxygen Delivery Method Sepsis Recent Fever Within 48 Hours Sepsis New/Unexplained Change in Mental Status Sepsis Action Taken by Nursing 06/15/22 20:50 06/15/22 20:54 06/15/22 20:54 Temperature Source Pulse Rate 76 76 Pulse Rate from SpO2 Sensor 73 Pulse Rhythm Respiratory Rate 15 16 Respiratory Effort / Characteristics Respiratory Depth Respiratory Pattern Blood Pressure 124/71 Blood Pressure Mean 88 Blood Pressure Position Pulse Oximetry 94 Oxygen Delivery Method Sepsis Recent Fever Within 48 Hours Sepsis New/Unexplained Change in Mental Status Sepsis Action Taken by Nursing 06/15/22 21:00 Temperature Source Pulse Rate 73 Pulse Rate from SpO2 Sensor Pulse Rhythm Respiratory Rate 16 Respiratory Effort / Characteristics Respiratory Depth Respiratory Pattern Blood Pressure Blood Pressure Mean Blood Pressure Position Pulse Oximetry Oxygen Delivery Method Sepsis Recent Fever Within 48 Hours Sepsis New/Unexplained Change in Mental Status Sepsis Action Taken by Nursing Physical Exam GENERAL: He is oriented to person, place, and time. He appears well-developed and well-nourished. He does not appear distressed. HENT: Exam performed. - Head: Normocephalic and atraumatic. - Right Ear: External ear normal. No mastoid tenderness. - Left Ear: External ear normal. No mastoid tenderness. - Mouth/Throat: The oropharynx is clear and moist. No trismus in the jaw. No dental abscesses or uvula swelling. No oropharyngeal exudate or tonsillar abscesses. EYES: Conjunctivae and EOM are normal. Pupils are equal, round, and reactive to light. Right eye exhibits no discharge. Left eye exhibits no discharge. No scleral icterus. NECK: Normal range of motion. Neck supple. No JVD present. No spinous process tenderness present. No carotid bruit present. No rigidity. No tracheal deviation and normal range of motion present. CV: Tachycardic rate, irregular rhythm, normal heart sounds and intact distal pulses. There is no peripheral edema. Palpable radial pulses bue. PULM/CHEST: Effort normal and breath sounds normal. No respiratory distress. No stridor. He has no wheezes. He has no rales. - Chest Wall: He exhibits no tenderness. ABD: The abdomen is soft. Bowel sounds are normal. He has no distension. No mass is present. There is no tenderness. There is no rebound, no guarding, no Mu rphy's sign and no tenderness at McBurney's point. Rovsig negative. MUSC/SKEL: Normal range of motion. There is no peripheral edema, tenderness or deformity. LYMPH: No cervical adenopathy. NEURO: He is alert and oriented to person, place, and time. He has normal strength. No cranial nerve deficit or sensory deficit. Coordination and gait normal. GCS eye subscore is 4. GCS verbal subscore is 5. GCS motor subscore is 6. Cerebellar tests wnl. SKIN: Skin is warm and dry. He is not diaphoretic. PSYCH: He has a normal mood and affect. Behavior is normal. Judgment and thought content normal. Course Course 1723: The patient was evaluated in room B4. A complete history and physical exam was performed Cardiac monitoring: An order was placed for continuous cardiac monitoring. The monitor shows a rate of 140-170 with atrial fibrilation rhythm Patient was found to be in atrial fibrillation rapid ventricular response. Car dizem 20 mg IV push was ordered for the patient which improved the patient's ventricular rate. After the patient received the Cardizem and his ventricular rate was improved his chest pain resolved. 1900: Patient remained tachycardic after initial Cardizem bolus and was placed on Cardizem drip. Cardizem drip was titrated 7.5 to control his ventricular rate. Labs are within normal limits with the exception of my leukocytosis 13.6 thought to be reactive. Troponin and chest x-ray negative [facility] rapid ventricular response Dr. Jordan notified. Administered Medications Diltiazem HCl 125 mg/ Dextrose 125 mls @ 5 mls/hr IV .Q24H [facility]; Protocol Stop: 07/15/22 17:44 Last Titration: 06/15/22 18:55 Dose: 7.5 mg/hr, 7.5 mls/hr Documented By: DELGADO Co-signed By: MARK Admin: 06/15/22 17:45 Dose: 5 mg/hr, 5 mls/hr Documented By: DELGADO Co-signed By: SAGAR Discontinued Medications Aspirin (Aspirin Chew 324 Mg) 324 mg PO NOW STA Stop: 06/15/22 17:31 Last Admin: 06/15/22 17:42 Dose: 324 mg Documented By: SAGAR Diltiazem HCl (Diltiazem Hcl 5 Mg/Ml 5 Ml Vial) Confirm Administered Dose 25 mg IV .STK-MED ONE Stop: 06/15/22 17:29 Last Increment: 06/15/22 17:32 Dose: 20 mg Documented By: SAGAR Co-signed By: MONTSERRAT Sodium Chloride (Nss 1000ml) 1,000 mls @ 999 mls/hr IV .Q1H1M STA Stop: 06/15/22 18:30 Last Admin: 06/15/22 17:42 Dose: 999 mls/hr Documented By: SAGAR Potassium Chloride (Potassium Chloride Crtab 20 Meq Tabcr) 40 meq PO NOW STA Stop: 06/15/22 20:42 Last Admin: 06/15/22 21:01 Dose: 40 meq Documented By: MARK Medical Decision Making Laboratory Data Attestation: I reviewed the patient's lab results. Result diagrams: 06/15/22 17:35 06/15/22 17:35 Labs: Lab Results 06/15/22 06/15/22 06/15/22 Range/Units 17:35 17:35 17:35 WBC 13.61 H (4.8-10.8) K/ul RBC 5.42 (4.63-6.08) M/uL Hgb 16.3 (14.0-18.0) g/dl Hct 46.8 (40.1-51.0) % MCV 86.3 (80.0-100.0) fL MCH 30.1 (25.0-34.0) pg MCHC 34.8 (32.0-36.0) g/dL RDW Std Deviation 41.3 (36.4-46.3) fL RDW Coeff of Yesi 13.3 (11.5-14.5) % Plt Count 183 (130-400) K/uL MPV 11.0 (9.4-12.4) fL Immature Gran % (Auto) 0.3 % Neut % (Auto) 68.5 % Lymph % (Auto) 24.5 % Forest % (Auto) 4.6 % Eos % (Auto) 1.4 % Baso % (Auto) 0.7 % Neut # (Auto) 9.33 H (1.4-6.5) K/uL Lymph # (Auto) 3.33 (1.2-3.4) K/uL Forest # (Auto) 0.63 (0.24-0.82) K/uL Eos # (Auto) 0.19 (0-0.50) K/uL Baso # (Auto) 0.09 (0-0.2) K/uL Immature Gran # (Auto) 0.04 H (0.00-0.02) K/uL PT 10.9 (9.0-12.0) Seconds INR 1.0 (0.9-1.1) APTT 28.8 (21.0-31.0) Seconds PTT Ratio 1.0 Sodium 141 (136-145) mmol/L Potassium 3.6 (3.5-5.1) mmol/L Chloride 106 (98-107) mmol/L Carbon Dioxide 25 (21-32) mmol/L Anion Gap 10 (3-11) BUN 19 (6-23) mg/dl Creatinine 0.80 (0.6-1.4) mg/dl Est Cr Clr Drug Dosing 126.5 ml/min Est GFR ( Amer) 108.7 ml/min Est GFR (Non-Af Amer) 93.7 ml/min BUN/Creatinine Ratio 23.8 H (10-20) Glucose 112 H (70-99(Fasting)) mg/dl Calcium 9.3 (8.5-10.1) mg/dl Magnesium 1.7 (1.7-2.4) mg/dl Troponin I High Sens 11.6 (0-20) pg/ml Lipase 42 (11-82) U/L SARS-CoV-2, RNA, NAAT (NEGATIVE) 06/15/22 Range/Units 18:30 WBC (4.8-10.8) K/ul RBC (4.63-6.08) M/uL Hgb (14.0-18.0) g/dl Hct (40.1-51.0) % MCV (80.0-100.0) fL MCH (25.0-34.0) pg MCHC (32.0-36.0) g/dL RDW Std Deviation (36.4-46.3) fL RDW Coeff of Yesi (11.5-14.5) % Plt Count (130-400) K/uL MPV (9.4-12.4) fL Immature Gran % (Auto) % Neut % (Auto) % Lymph % (Auto) % Forest % (Auto) % Eos % (Auto) % Baso % (Auto) % Neut # (Auto) (1.4-6.5) K/uL Lymph # (Auto) (1.2-3.4) K/uL Forest # (Auto) (0.24-0.82) K/uL Eos # (Auto) (0-0.50) K/uL Baso # (Auto) (0-0.2) K/uL Immature Gran # (Auto) (0.00-0.02) K/uL PT (9.0-12.0) Seconds INR (0.9-1.1) APTT (21.0-31.0) Seconds PTT Ratio Sodium (136-145) mmol/L Potassium (3.5-5.1) mmol/L Chloride (98-107) mmol/L Carbon Dioxide (21-32) mmol/L Anion Gap (3-11) BUN (6-23) mg/dl Creatinine (0.6-1.4) mg/dl Est Cr Clr Drug Dosing ml/min Est GFR ( Amer) ml/min Est GFR (Non-Af Amer) ml/min BUN/Creatinine Ratio (10-20) Glucose (70-99(Fasting)) mg/dl Calcium (8.5-10.1) mg/dl Magnesium (1.7-2.4) mg/dl Troponin I High Sens (0-20) pg/ml Lipase (11-82) U/L SARS-CoV-2, RNA, NAAT NEGATIVE (NEGATIVE) Imaging Data Chest x-ray: Radiologist's impression: Chest X-Ray 06/15/22 17:30 XR chest 1V portable HISTORY: Atypical Chest pain, nonspecific COMPARISON: Chest 05/09/2022. FINDINGS: The lungs are clear. Cardiac silhouette is normal in size. No pleural effusions. No pneumothorax. IMPRESSION: No acute process. ACT 112: Negative or not required by law. Electronically signed by: Feliz Hunter M.D. 06/15/2022 6:42 PM ECG Data Attestation: I personally reviewed and interpreted this ECG as follows: Additional Comments: EKG #1 at 1726: Atrial fibrillation with rate of 153. QRS [address] elevation or ST depression. EKG #2 at 1738 status post 20 mg IV Cardizem bolus: Atrial fibrillation with rate of 115. QRS and QTc intervals are within normal limits. No ST elevation or ST depression. [facility] Narrative 1723: The patient was evaluated in room B4. A complete history and physical exam was performed Cardiac monitoring: An order was placed for continuous cardiac monitoring. The monitor shows a rate of 140-170 with atrial fibrilation rhythm Patient was found to be in atrial fibrillation rapid ventricular response. Cardizem 20 mg IV push was ordered for the patient which improved the patient's ventricular rate. After the patient received the Cardizem and his ventricular rate was improved his chest pain resolved. 1900: Patient remained tachycardic after initial Cardizem bolus and was placed on Cardizem drip. Cardizem drip was titrated 7.5 to control his ventricular rate. Labs are within normal limits with the exception of my leukocytosis 13.6 thought to be reactive. Troponin and chest x-ray negative [facility] rapid ventricular response Dr. Jordan notified. Impression & Plan Atrial fibrillation with RVR Discharge Plan Visit Data Chief Complaint: Chest Pain Stated Complaint: HEART PROBLEMS,CHEST PAIN, ED Provider: Brian Herrera Discharge Problem: Atrial fibrillation with RVR Patient Disposition: Admitted As Inpatient Forms Stand Alone Forms: My [facility] Prescriptions Prescriptions: No Action albuterol sulfate [Ventolin HFA] 90 mcg/actuation HFA aerosol inhaler 2 puff INHALATION Q4H PRN (Reason: Shortness Of Breath) Qty: 3 3RF loratadine [Claritin] 10 mg tablet 10 mg PO QAM Qty: 90 3RF montelukast 10 mg tablet 10 mg PO HS Qty: 90 3RF Xarelto 20 mg tablet 20 mg PO HS Qty: 90 3RF simvastatin 20 mg tablet 20 mg PO HS Qty: 90 3RF metoprolol succinate 25 mg tablet extended release 24 hr 25 mg PO HS Qty: 90 3RF nystatin 100,000 unit/mL suspension 5 ml PO BID PRN (Reason: mouth soreness) 5 Days Qty: 60 2RF Rx Instructions: swish and swallow epinephrine [EpiPen] 0.3 mg/0.3 mL auto-injector 0.3 mg IM Q3H PRN (Reason: Allergic Reaction) Qty: 1 0RF cholecalciferol (vitamin D3) [Vitamin D3] 25 mcg (1,000 unit) Tablet 1,000 unit PO QAM fluticasone propion-salmeterol 250-50 mcg/dose blister with device 1 inh INHALATION [facility] primidone 50 mg tablet 25 - 50 mg PO UD Rx Instructions: 25mg po bid x 1 week, then advance to 50mg po bid omeprazole 40 mg capsule,delayed release(DR/EC) 40 mg PO QAM Referrals Referrals: Gabrielle Beltran DO [Primary Care Provider] -
[2022-06-15] MEDS ORDERED: METOPROLOL SUCC 25MG EXT REL TAB PO SCH (22:28)
[2022-06-15] MEDS ORDERED: FLUTICASONE/SALMETEROL 250/50 (ADVAIR) 14 PUFF/1 INHALER INH SCH (22:28)
[2022-06-15] MEDS ORDERED: RIVAROXABAN 20 MG TAB PO SCH (22:28)
[2022-06-15] MEDS ORDERED: SIMVASTATIN 20 MG TAB PO SCH (22:28)
[2022-06-15] MEDS ORDERED: ALBUTEROL HFA 8 GM INHALER INH PRN (22:28)
[2022-06-15] MEDS ORDERED: PRIMIDONE 50 MG TAB PO SCH (22:28)
[2022-06-15] MEDS ORDERED: MONTELUKAST SODIUM 10 MG TABLET PO SCH (22:28)
[2022-06-15] MEDS: MAGNESIUM SULFATE / D5W 1 GM/100 ML BAG IV SCH (23:44)
[2022-06-16] MEDS: MAGNESIUM SULFATE / D5W 1 GM/100 ML BAG IV SCH (01:32)
[2022-06-16 06:13] LABS: Hematocrit (blood only) 40.8 % (40.1-51.0); Hemoglobin 13.8 g/dl (14.0-18.0); Mean Corpuscular Hemoglobin 29.7 pg (25.0-34.0); Mean Corpuscular Hgb Conc 33.8 g/dL (32.0-36.0); Mean Corpuscular Volume 87.7 fL (80.0-100.0); Mean Platelet Volume 10.5 fL (9.4-12.4); Platelet Count 168 K/uL (130-400); RDW Coefficient of Variation 13.8 % (11.5-14.5); RDW Standard Deviation 44.1 fL (36.4-46.3); Red Blood Count 4.65 M/uL (4.63-6.08); White Blood Count 7.71 K/ul (4.8-10.8)
[2022-06-16 06:42] LABS: Calcium 8.2 mg/dl (8.5-10.1); Creatinine Clr Calc Pharmacy 140.4 ml/min; Est GFR (African American) 113.5 ml/min; Est GFR (Non-African American) 97.9 ml/min; Phosphorus 3.8 mg/dl (2.5-4.9); Potassium 4.1 mmol/L (3.5-5.1)
[2022-06-16] MEDS ORDERED: FLUTICASONE/VILANTEROL 200/25MCG 14 PUFFS/INHALER INH SCH (09:00)
[2022-06-16] MEDS ORDERED: PANTOprazole 40 MG TAB PO SCH (09:00)
[2022-06-16] MEDS ORDERED: LORATADINE 10 MG TAB PO SCH (09:00)
[2022-06-16] MEDS: dilTIAZem HCL 125 MG in DEXTROSE 5% 100 ML IV SCH (09:28)
--- NOTE | 2022-06-16 11:06 | XCELERA ---
[id number]
--- NOTE | 2022-06-16 12:51 | Cardiology Consultation ---
Date of Consultation June 16, 2022 Assessment & Plan (1) Atrial fibrillation with RVR: -fortunately, he has converted to sinus rhythm. -has a longstanding history of atrial fibrillation, s/p RFA x3. -would did discontinue intravenous diltiazem. -continue Xarelto. -instructed patient to take an additional 25 mg dose of metoprolol succinate should he develop a recurrence. -follow-up as scheduled. (2) HTN (hypertension): -adequate control on current regimen. (3) Hyperlipidemia: -continue simvastatin. History of Present Illness Attending Physician: Sheila Khan, History of Present Illness Mr. Brown is a 67-year-old male admitted yesterday atrial fibrillation and a rapid ventricular response. This consultation was ordered to assistance cardiac management. Of note, the patient is well known to me from the outpatient setting. The patient was in his usual state of health the day of presentation when he developed the onset palpitations and a rapid irregular pulse. He was particularly concerned as his ventricular response was quite rapid and he just did not feel right. A presentation emergency room, the patient was in atrial fibrillation with a rapid ventricular response. He was started on a diltiazem drip and his heart rate improved dramatically. Fortunately, he converted to sinus rhythm on route to his room and. The patient has longstanding history of paroxysmal atrial fibrillation. His undergone a total of 3 radiofrequency ablations. He is currently noticing an episode of atrial fibrillation approximately 1 time each week. His episodes typically last no more than 1 hour. Currently, patient is resting comfortably in the bedside chair without complaints. Past medical and surgical history 1. Paroxysmal atrial fibrillation 2. Hypercholesterolemia 3. Hypertension 4. Symptomatic PACs/PVCs 5. Mild aortic insufficiency 6. GERD 7. Balbuena's esophagus 8. Asthma 9. Obstructive sleep apnea 10. Essential tremor 11. Depression 12. DJD 13. Tonsillectomy 14. Appendectomy 15. Vasectomy 16. Deep brain stimulator Social history and lives with his No tobacco alcohol Family history Father of heart disease. Review of systems A 10 review systems was undertaken and negative except that described above. Allergies Allergy/AdvReac Type Severity Reaction Status Date / Time bee venom protein (honey bee) Allergy Severe ANAPHYLAXIS Verified 06/15/22 20:03 lidocaine Allergy Mild LOCAL Verified 06/15/22 20:03 SWELLING AT SITE USED pollen extracts Allergy Mild sneezing, Verified 12/30/22 20:03 watery eyes Home Medications Medication Instructions Recorded Confirmed Type cholecalciferol (vitamin D3) 25 1,000 unit PO QAM 10/20/19 06/15/22 History mcg (1,000 unit) tablet (Vitamin D3) epinephrine 0.3 mg/0.3 mL 0.3 mg (0.3 mL) IM Q3H PRN 11/21/21 06/15/22 Rx injection, auto-injector (EpiPen) Allergic Reaction #1 ea albuterol sulfate 90 mcg/actuation 2 puff inhalation Q4H PRN 03/22/22 06/15/22 Rx aerosol inhaler (Ventolin HFA) Shortness Of Breath #3 Inhalers loratadine 10 mg tablet (Claritin) 10 mg PO QAM #90 tabs 03/22/22 06/15/22 Rx metoprolol succinate 25 mg 25 mg PO HS #90 tabs 03/22/22 06/15/22 Rx tablet,extended release 24 hr montelukast 10 mg tablet 10 mg PO HS #90 tabs 03/22/22 06/15/22 Rx rivaroxaban 20 mg tablet (Xarelto) 20 mg PO HS #90 tabs 03/22/22 06/15/22 Rx simvastatin 20 mg tablet 20 mg PO HS #90 tabs 03/22/22 06/15/22 Rx nystatin 100,000 unit/mL oral 5 ml PO BID PRN mouth soreness 5 05/17/22 06/15/22 Rx suspension days #60 mL fluticasone 250 mcg-salmeterol 50 1 inh inhalation [facility] 06/15/22 06/15/22 History mcg/dose blistr powdr for inhalation omeprazole 40 mg capsule,delayed 40 mg PO QAM 06/15/22 06/15/22 History release primidone 50 mg tablet 25 - 50 mg PO UD 06/15/22 06/15/22 History Patient History Medical History A-fib REASON FOR XARELTO Adjustment disorder with depressed mood Allergic rhinitis due to other allergen Asthma inhaler daily/prn, no exacerbations in the last 3 months Cancer SKIN CANCER REMOVED FROM FACE Essential tremor VS PARKINSON'S "CAN'T R/O" GERD (gastroesophageal reflux disease) History of Balbuena's esophagus "CLEARED UP" Hyperlipidemia Hypertension Osteoarthritis Sleep apnea cpap Solitary pulmonary nodule Symptomatic PVCs med controlled, "weak knees" Syncope none since 2020 Tinnitus Surgical History History of cardiac radiofrequency ablation X 3 (LAST ONE 2009 AT [facility]) History of colonoscopy History of esophagogastroduodenoscopy (EGD) History of surgery eye surgery to remove cancer History of tonsillectomy and adenoidectomy History of tooth extraction Hx of appendectomy Hx of vasectomy S/P deep brain stimulator placement IMPLANTED 2002, DEVICE REMOVED SEPTEMBER 2019>INFECTION RESULTING IN REMOVAL (CURRENTLY ON ANTIBIOTICS VIA PICC LINE) S/P PICC central line placement hx S/P tendon repair RT THUMB Family History Father Hypertension Grandfather (Paternal) Diabetes Myocardial infarction Other Asthma No family history of adverse response to anesthesia Denies family history of Ovarian cancer Prostate cancer Breast cancer Colorectal cancer Social History Smoking Status: Former smoker Second Hand Exposure: No; Hx Alcohol Use: No Hx Substance Use: No Preferred Language: Sammarinese Communication Ability: Effective Visual Impairment: No Limitations Hearing Ability: Normal Ice Cream Mixer Required: No Beliefs That Will Affect Care: None marital status: Current Living Situation: Spouse Other Information That Helps Us Care for You: No other: previous service- [employer] Feels Safe at Home: Yes Safety Concerns: Feels Safe At This Time caffeine: Yes Dental Care, Regularly: Yes Seatbelt Use: always Sunscreen Use: No Assistive Devices: CPAP and Glasses Physical Exam Physical Exam: In general this is a well-developed well-nourished white male in no acute distress. HEENT exam is negative. Neck is supple with full carotid upstrokes. There are no carotid bruits. No jugular venous distention. There is no thyromegaly. Cardiovascular exam reveals a regular rhythm with a normal S1 and S2. No S3, S4, or murmurs are noted. Lungs are clear without rales, rhonchi, or wheezes. Abdomen is soft and nontender without bruits. Extremities reveal intact radial artery and posterior tibial pulses bilaterally. There is no peripheral edema. Results & Data ([facility]) Vital Signs (Past 12 Hours) Vital Signs Temp Pulse Pulse Resp BP BP Pulse Ox 06/16/22 12:22 36.8 C 62 18 137/89 93 06/16/22 07:45 63 06/16/22 07:18 36.8 C 65 20 119/77 94 06/16/22 03:27 36.7 C 63 14 116/72 94 O2 Del Method 06/16/22 12:22 Room Air 06/16/22 07:45 06/16/22 07:18 Room Air 06/16/22 03:27 Room Air Laboratory Results Initial high sensitivity troponin was 11.6 with follow-up values of 15.7 and 11.1. Diagnostic Findings Initial EKG noted atrial fibrillation with a rapid ventricular response. Follow-up tracing noted sinus rhythm with PACs. Echocardiogram notes normal left ventricular systolic function with ejection fraction of 60-65%. There is borderline LVH and mild tricuspid regurgitation. Chest x-ray shows no acute disease. PG Care Time/CCT Total # of Minutes Spent Total Time Spent with Patient: Total time spent is greater than 50% in coordination of care (as documented) at patient's floor/unit and/or counseling patient: Coding Level of Care Code 84446 Office/OBS Consult Lvl 4 Diagnoses Atrial fibrillation with RVR I48.91 HTN (hypertension) I10 Hyperlipidemia E78.5
--- NOTE | 2022-06-16 13:14 | Hospitalist Progress Note ---
Date of Service June 16, 2022 Assessment & Plan (1) Atrial fibrillation with RVR: Plan Chest discomfort A. fib RVR Patient presented with chest discomfort, noted increased heart rate up to 149 in his fitbit watch. Patient reports relief in chest discomfort with initiation of Cardizem drip. At presentation patient with A. fib RVR, status post Cardizem bolus and drip per ER doctor. During my exam, patient had irregular heart rate, heart rate in 80s to 90s. Patient was on Cardizem drip. Patient reports improvement in his chest discomfort. Admitting troponin WNL, trend troponin, replace magnesium potassium with a goal of 2.0 and 4.0 respectively. ECHO. Cardiology consult. Continue w cardizem drip started in ED. Hypertensive urgency: Admitting blood pressure 153/85, blood pressure went up to 213/124. Likely secondary to acute distress. Will institute as needed blood pressure medications. Continue telemetry monitoring. EKG as needed for chest pain. Leukocytosis: Secondary to acute stress, will order Pro-Won. Follow-up labs in AM. Other chronic medical conditions: Asthma, allergic rhinitis, Balbuena's esophagus, constipation, essential tremor ----resume home meds as able DVT prophylaxis: Patient on Xarelto Full code Admission and Anticipated Discharge Date Admission Date: June 15, 2022 Results & Data Results & Data ([facility]) Vital Signs (Past 12 Hours) Vital Signs Temp Pulse Pulse Resp BP BP Pulse Ox 06/16/22 12:22 36.8 C 62 18 137/89 93 06/16/22 07:45 63 06/16/22 07:18 36.8 C 65 20 119/77 94 06/16/22 03:27 36.7 C 63 14 116/72 94 O2 Del Method 06/16/22 12:22 Room Air 06/16/22 07:45 06/16/22 07:18 Room Air 06/16/22 03:27 Room Air Laboratory Results Short CBC 06/15/22 06/16/22 Range/Units 17:35 05:35 WBC 13.61 H 7.71 (4.8-10.8) K/ul Hgb 16.3 13.8 L (14.0-18.0) g/dl Hct 46.8 40.8 (40.1-51.0) % Plt Count 183 168 (130-400) K/uL BMP 12/30/22 12/31/22 17:35 05:35 Sodium 141 140 Potassium 3.6 4.1 Chloride 106 107 Carbon Dioxide 25 27 BUN 19 18 Creatinine 0.80 0.72 Glucose 112 H 115 H Calcium 9.3 8.2 L Medications Administered Current Inpatient Medications Acetaminophen (Acetaminophen 325 Mg Tab) 650 mg PO Q4H PRN PRN Reason: Pain or Fever Stop: 07/15/22 20:12 Al Hydrox/Mg Hydrox/Simethicone (Aluminum/Magnesium Susp 30 Ml Udc) 15 ml PO Q4H PRN PRN Reason: Dyspepsia Stop: 07/15/22 20:12 Albuterol (Albuterol Hfa 8 Gm Inhaler) 2 puffs INH Q4H PRN PRN Reason: Shortness Of Breath Stop: 07/15/22 22:27 Fluticasone/Vilanterol (Fluticasone/Vilanterol 200/25mcg 14 Puffs/Inhaler) 1 puffs INH DAILY [facility] Stop: 07/16/22 08:59 Last Admin: 06/16/22 08:43 Dose: 1 puffs Hydralazine HCl (Hydralazine Hcl 20 Mg/Ml Vial) 10 mg IV Q6H PRN PRN Reason: Hypertension Stop: 07/15/22 20:44 Labetalol HCl (Labetalol Hcl Iv 5 Mg/Ml 20ml) 10 mg IV Q6H PRN PRN Reason: Hypertension Stop: 07/15/22 20:37 Loratadine (Loratadine 10 Mg Tab) 10 mg PO [facility] Stop: 07/16/22 08:59 Last Admin: 06/16/22 08:43 Dose: 10 mg Metoprolol Succinate (Metoprolol Succ 25mg Ext Rel Tab) 25 mg PO [facility] Stop: 07/15/22 22:27 Last Admin: 06/16/22 00:07 Dose: 25 mg Montelukast Sodium (Montelukast Sodium 10 Mg Tablet) 10 mg PO [facility] Stop: 07/15/22 22:27 Last Admin: 06/16/22 00:08 Dose: 10 mg Nitroglycerin (Nitroglycerin Sl 0.4 Mg/Tab Tab) 0.4 mg SL UD PRN PRN Reason: Chest Pain Stop: 07/15/22 20:12 Ondansetron HCl (Ondansetron Inj 2 Mg/Ml 2 Ml Vial) 4 mg IV Q6H PRN PRN Reason: Nausea Stop: 07/15/22 20:12 Pantoprazole Sodium (Pantoprazole 40 Mg Tab) 40 mg PO QAM [facility] Stop: 07/16/22 08:59 Last Admin: 06/16/22 08:43 Dose: 40 mg Polyethylene Glycol (Polyethylene (Miralax) 17 Gm Pack) 17 gm PO DAILY PRN PRN Reason: Constipation Stop: 07/15/22 20:12 Primidone (Primidone 50 Mg Tab) 25 - 50 mg PO UD [facility] Stop: 07/15/22 22:27 Rivaroxaban (Rivaroxaban 20 Mg Tab) 20 mg PO QDD [facility] Stop: 07/15/22 22:27 Last Admin: 06/16/22 00:07 Dose: 20 mg Simvastatin (Simvastatin 20 Mg Tab) 20 mg PO HS [facility] Stop: 07/15/22 22:27 Last Admin: 06/16/22 00:08 Dose: 20 mg
--- NOTE | 2022-06-16 13:52 | Discharge Summary ---
Discharge Summary Date of Service June 16, 2022 Admission HPI Per Admitting Provider 67-year-old male with PMH of moderate persistent asthma, allergic rhinitis, Balbuena's esophagus, constipation, essential tremor, actinic keratosis, status post deep brain stimulator placement presented to the ED 06/15 with complaint of sudden onset chest discomfort at around 3:30 PM on the day of arrival. Patient also noted increased heart rate in his Fitbit watch up to 149. He reports discomfort radiating into his left shoulder and arm, 4-5 over 10, continued through 3 hours until he presented to the ED, got relieved after being started on Cardizem drip per patient. Patient denies any fever or chills or headache or belly pain or acute changes in his bowel or bladder habit. Patient reports some dizziness during the day and shortness of breath associated with chest discomfort. At admission magnesium low normal, troponin WNL, chest x-ray with no acute finding, potassium low normal. Will replete magnesium and potassium. Patient quit smoking 1992, quit drinking alcohol 1980, denies use of recreational drugs. Full code [patient's Kailee is medical POA per patient, was at bedside] Family history positive for heart disease in his father, patient not sure what kind. Lung cancer in grandfather. Patient is a retired legal support analyst. Medications reviewed with the patient. Principal Dx & Hospital Course #1 = Principal Diagnosis Updated Medication List Medication Instructions Recorded Confirmed Type cholecalciferol (vitamin D3) 25 1,000 unit PO QAM 10/20/19 06/15/22 History mcg (1,000 unit) tablet (Vitamin D3) epinephrine 0.3 mg/0.3 mL 0.3 mg (0.3 mL) IM Q3H PRN 11/21/21 06/15/22 Rx injection, auto-injector (EpiPen) Allergic Reaction #1 ea albuterol sulfate 90 mcg/actuation 2 puff inhalation Q4H PRN 03/22/22 06/15/22 Rx aerosol inhaler (Ventolin HFA) Shortness Of Breath #3 Inhalers loratadine 10 mg tablet (Claritin) 10 mg PO QAM #90 tabs 03/22/22 06/15/22 Rx metoprolol succinate 25 mg 25 mg PO HS #90 tabs 03/22/22 06/15/22 Rx tablet,extended release 24 hr montelukast 10 mg tablet 10 mg PO HS #90 tabs 03/22/22 06/15/22 Rx rivaroxaban 20 mg tablet (Xarelto) 20 mg PO HS #90 tabs 03/22/22 06/15/22 Rx simvastatin 20 mg tablet 20 mg PO HS #90 tabs 03/22/22 06/15/22 Rx nystatin 100,000 unit/mL oral 5 ml PO BID PRN mouth soreness 5 05/17/22 06/15/22 Rx suspension days #60 mL fluticasone 250 mcg-salmeterol 50 1 inh inhalation [facility] 06/15/22 06/15/22 Histo ry mcg/dose blistr powdr for inhalation omeprazole 40 mg capsule,delayed 40 mg PO QAM 06/15/22 06/15/22 History release primidone 50 mg tablet 25 - 50 mg PO UD 06/15/22 06/15/22 History Hospital Stay Data Consultations 06/15/22 18:58 ED Decision to Admit Stat 06/15/22 20:13 Consult Cardiology Routine Pending Results Patient Have Any Pending Studies at Discharge: No Discharge Instructions Given to Patient (Per Discharging Provider) Please take an additional metoprolol tablet at home if you have a reoccurrence of atrial fibrillation. You are currently in sinus rhythm at discharge. Please consider a hospital follow-up with your primary care provider to ensure you are still doing well after returning home. Please continue to take all medications as instructed on discharge list below without any changes. It was a pleasure taking care of you! Please call if you have any questions or problems. You can reach a [facility] hospitalist on duty at [facility] 24 hours a day by calling [phone]. Take care of yourself. Sheila Khan, DO [facility]
--- NOTE | 2022-06-16 14:42 | Electrocardiogram Report ---
Test Reason : Blood Pressure : / mmHG Vent. Rate : 153 BPM Atrial Rate : 129 BPM P-R Int : 000 ms QRS Dur : 084 ms QT Int : 262 ms P-R-T Axes : 000 061 -33 degrees QTc Int : 418 ms Poor data quality, interpretation may be adversely affected Atrial fibrillation with rapid ventricular response with premature ventricular or aberrantly conducte d complexes Abnormal ECG When compared with ECG of 04-FEB-2019 17:26, Significant changes have occurred Confirmed by Miles Harp ([id number]) on 06/16/2022 2:42:20 PM Referred By: REFERRED SELF Confirmed By:Miles Harp
--- NOTE | 2022-06-16 14:43 | Electrocardiogram Report ---
Test Reason : Blood Pressure : / mmHG Vent. Rate : 115 BPM Atrial Rate : 131 BPM P-R Int : 000 ms QRS Dur : 088 ms QT Int : 350 ms P-R-T Axes : 000 043 005 degrees QTc Int : 484 ms Atrial fibrillation with rapid ventricular response Abnormal ECG When compared with ECG of 15-JUN-2022 17:26, (unconfirmed) ST no longer depressed in Lateral leads Confirmed by Miles Harp ([id number]) on 06/16/2022 2:42:47 PM Referred By: REFERRED SELF Confirmed By:Miles Harp
--- NOTE | 2022-06-16 14:43 | Electrocardiogram Report ---
Test Reason : Blood Pressure : / mmHG Vent. Rate : 153 BPM Atrial Rate : 136 BPM P-R Int : 000 ms QRS Dur : 086 ms QT Int : 296 ms P-R-T Axes : 000 063 -18 degrees QTc Int : 472 ms Atrial fibrillation with rapid ventricular response Nonspecific ST abnormality Abnormal ECG When compared with ECG of 15-JUN-2022 17:26, (unconfirmed) Atrial fibrillation has replaced Sinus rhythm Confirmed by Miles Harp ([id number]) on 06/16/2022 2:42:31 PM Referred By: REFERRED SELF Confirmed By:Miles Harp
--- NOTE | 2022-06-18 18:49 | Electrocardiogram Report ---
Test Reason : Blood Pressure : / mmHG Vent. Rate : 066 BPM Atrial Rate : 066 BPM P-R Int : 162 ms QRS Dur : 090 ms QT Int : 444 ms P-R-T Axes : 152 147 136 degrees QTc Int : 465 ms Suspect arm lead reversal, interpretation assumes no reversal Unusual P axis, possible ectopic atrial rhythm with Premature atrial complexes Lateral infarct , age undetermined Abnormal ECG Confirmed by Mickey Parmar ([id number]) on 06/18/2022 6:49:27 PM Referred By: REFERRED SELF Confirmed By:Zafar Parmar
== END 2022-06-16 14:30 | disposition home or self-care (01) | DRG 310 ==
LOC: ED 17:10 → SUATTDRO 20:13 → 4W 20:13